=== PATIENT | male | born 1995 | race African-American/Black ===

== ENCOUNTER → 2020-01-18 | Emergency (ER) | payer OTHER ==
[~2020-01-18] VITALS: Ht 180.3 cm; Wt 72.6 kg
== END | disposition home or self-care (01) ==
LOC: ER 12:51
DX: S91.321A Laceration with foreign body, right foot, initial encounter (principal); M12.571 Traumatic arthropathy, right ankle and foot; X58.XXXA Exposure to other specified factors, initial encounter; Y93.89 Activity, other specified; Y92.89 Other specified places as the place of occurrence of the external cause; Y99.8 Other external cause status